=== PATIENT | male | born 1970 | race Hispanic/Latino ===

== ENCOUNTER 2018-12-23 10:53 | Outpatient (CLI) | payer SELFPAY ==
--- NOTE | 2018-12-23 13:55 | RAD ---
RADIOGRAPH CHEST 2 VIEWS: Date: 12/23/2018. Time: 11:31 a.m. HISTORY: A 48-year-old male with recent, traumatic closed left rib fractures. COMPARISON: 12/08/2018. FINDINGS: Displaced left upper rib fractures are unchanged, with associated left upper pleural thickening which may be a pleural hematoma. No significant interval change on the frontal view. No pneumothorax, pu lmonary edema, or cardiomegaly. On the lateral view, there is blunting of the left posterior costophrenic angle consistent with a sma ll pleural effusion. The prior study was only a single view. Again noted is the displaced left mid clavicular fracture. IMPRESSION: 1. Recent, traumatic, displaced fractures of left clavicle and left upper ribs. 2. Small left pleural effusion. 3. Left upper pleural thickening. 4. No acute pulmonary findings. 5. No interval change on the frontal projection. JN [] POS: [facility]
== END 2018-12-23 10:54 | disposition home or self-care (01) ==
LOC: RAD 10:53
PROVIDERS: ATTEND Physician Assistant
DX: S22.42XD Multiple fractures of ribs, left side, subsequent encounter for fracture with routine healing (principal); S42.012A Anterior displaced fracture of sternal end of left clavicle, initial encounter for closed fracture; J90 Pleural effusion, not elsewhere classified; J92.9 Pleural plaque without asbestos
CPT/HCPCS: 71046